=== PATIENT | male | born 1955 | race Caucasian/White ===

== ENCOUNTER 2017-08-22 17:51 | Inpatient (IN) | payer OTHER, MEDICAID ==
[~2017-08-22] VITALS: Ht 177.8 cm; Wt 95.2 kg
[2017-08-22] MEDS ORDERED: MIDAZOLAM HCL 1MG/1ML-2 ML VIAL IM ONE (18:45)
[2017-08-22] MEDS ORDERED: diphenhdrAMINE HCL 50 MG/1 ML VL IM ONE (18:45)
[2017-08-22 19:24] LABS: Basophils # (auto) 0.1 uL; Basophils % (auto) 0.5 % (0.0-2.0); Eosinophils # (auto) 0.1 uL; Eosinophils % (auto) 0.5 % (0.0-7.0); Hematocrit 35.3 % (41.0-53.0); Hemoglobin 11.8 g/dL (13.5-17.5); Lymphocytes # (auto) 2.3 uL; Lymphocytes % (auto) 14.8 % (10.0-50.0); Mean Corpuscular Hemoglobin 29.6 pg (28.0-32.0); Mean Corpuscular Hgb Conc. 33.4 g/dL (32.0-36.0); Mean Corpuscular Volume 88.9 fL (80.0-100.0); Monocytes # (auto) 1.2 uL; Monocytes % (auto) 7.7 % (0.0-12.0); Neutrophils # (auto) 11.9 uL; Neutrophils % (auto) 76.5 % (37.0-80.0); Platelet Count (auto) 382 10^3/uL (140-450); Red Blood Cells 3.98 10^6/uL (4.5-5.90); Red Cell Distribution Width 14.8 % (11.8-14.3); White Blood Cell 15.5 10^3/uL (4.4-10.8)
[2017-08-22] MEDS ORDERED: chlorproMAZINE HCL 25 MG TAB PO PRN (22:30)
[2017-08-22] MEDS ORDERED: OLANZapine 5 MG TAB PO ONE (22:30)
[2017-08-22] MEDS ORDERED: HYDROcodone-ACET 5/325MG TAB PO PRN (22:30)
[2017-08-22] MEDS ORDERED: OLANZapine 5 MG TAB ONE (22:48)
[2017-08-22] MEDS ORDERED: MORPHINE SULFATE INJECTION 1 ML ONE (23:40)
[2017-08-22] MEDS ORDERED: MORPHINE SULFATE 8mg/ml INJ SDV IM ONE (23:45)
[2017-08-23] VITALS (7 sets, daily range): BP systolic 102–126; BP diastolic 60–81
[2017-08-23] MEDS ORDERED: diphenhdrAMINE HCL 50 MG/1 ML VL IM ONE (00:45)
[2017-08-23] MEDS ORDERED: OLAN10TA29 PO (01:23)
[2017-08-23] MEDS ORDERED: CHLO100T4 PO (01:23)
[2017-08-23] MEDS ORDERED: DIVA250T3 PO (01:23)
[2017-08-23] MEDS ORDERED: LEVO50TA7 PO (01:23)
[2017-08-23] MEDS ORDERED: SENN-62 PO (01:23)
[2017-08-23] MEDS ORDERED: diphenhdrAMINE HCL 50 MG/1 ML VL ONE (01:32)
[2017-08-23] MEDS: OLANZapine 5 MG TAB PO SCH (09:46)
[2017-08-23] MEDS: POLYETHYLENE GLYCOL 17 GM PWDR PO SCH (09:47)
[2017-08-23] MEDS ORDERED: diphenhdrAMINE HCL 50 MG/1 ML VL IM PRN (12:45)
[2017-08-24 04:00] VITALS: BP 110/59
[2017-08-24 09:00] VITALS: BP 119/72
[2017-08-24] MEDS: OLANZapine 5 MG TAB PO SCH (10:34)
[2017-08-24] MEDS: POLYETHYLENE GLYCOL 17 GM PWDR PO SCH (10:34)
[2017-08-24 13:00] VITALS: BP 122/70
[2017-08-24 17:00] VITALS: BP 104/63
[2017-08-24 20:37] VITALS: BP 128/86
[2017-08-25 04:33] VITALS: BP 121/80
[2017-08-25 09:00] VITALS: BP 121/81
[2017-08-25] MEDS: POLYETHYLENE GLYCOL 17 GM PWDR PO SCH (09:44)
[2017-08-25] MEDS: OLANZapine 5 MG TAB PO SCH (09:44)
[2017-08-25 12:52] VITALS: BP 137/88
[2017-08-25 17:00] VITALS: BP 125/87
[2017-08-25 21:52] VITALS: BP 126/91
== END 2017-08-25 23:20 | disposition hospice, inpatient (51) | DRG 885 ==
LOC: EDBD 17:51 → ER 17:51 → OVERFLOW 17:52 → WEST WING 23:56
PROVIDERS: ADMIT Nurse Practitioner Family; ATTEND Family Medicine
DX: F29 Unspecified psychosis not due to a substance or known physiological condition (principal); G10 Huntington's disease; F02.81 Dementia in other diseases classified elsewhere, unspecified severity, with behavioral disturbance; K21.9 Gastro-esophageal reflux disease without esophagitis; E03.9 Hypothyroidism, unspecified; I10 Essential (primary) hypertension; Z51.5 Encounter for palliative care; Z66 Do not resuscitate
CPT/HCPCS: 36415; 71045; 82962; 85025; 87040; J2250

== ENCOUNTER 2017-10-14 18:30 | Inpatient (IN) | payer OTHER, MEDICAID ==
[~2017-10-14] VITALS: Ht 182.9 cm; Wt 90.6 kg
[~2017-10-14 18:30] MED LIST: CHLO100T4 PO; DIVA250T3 PO; LEVO50TA7 PO; OLAN10TA29 PO; SENN-62 PO
[2017-10-14 19:45] LABS: Basophils # (auto) 0.1 uL; Basophils % (auto) 0.8 % (0.0-2.0); Eosinophils # (auto) 0.2 uL; Eosinophils % (auto) 2.5 % (0.0-7.0); Hematocrit 37.2 % (41.0-53.0); Hemoglobin 12.4 g/dL (13.5-17.5); Lymphocytes # (auto) 2.3 uL; Lymphocytes % (auto) 26.7 % (10.0-50.0); Mean Corpuscular Hemoglobin 29.5 pg (28.0-32.0); Mean Corpuscular Hgb Conc. 33.4 g/dL (32.0-36.0); Mean Corpuscular Volume 88.2 fL (80.0-100.0); Monocytes # (auto) 0.5 uL; Monocytes % (auto) 6.2 % (0.0-12.0); Neutrophils # (auto) 5.6 uL; Neutrophils % (auto) 63.8 % (37.0-80.0); Nucleated Red Blood Cells % 0.1 %; Platelet Count (auto) 324 10^3/uL (140-450); Red Blood Cells 4.21 10^6/uL (4.5-5.90); White Blood Cell 8.7 10^3/uL (4.4-10.8)
[2017-10-14 20:08] LABS: Prothrombin Time 10.7 sec (9.27-12.13)
[2017-10-14 20:12] LABS: Alanine Aminotransferase 64 U/L (16-61); Albumin 3.4 g/dL (3.4-5.0); Alkaline Phosphatase 118 U/L (45-117); Anion Gap 5 (5-15); Aspartate Aminotransferase 32 U/L (15-37); BUN/Creatinine Ratio 13.7; Bilirubin, Total 0.6 mg/dL (0.2-1.0); Blood Urea Nitrogen 13 mg/dL (7-18); Calcium 9.2 mg/dL (8.5-10.1); Carbon Dioxide 28 mmol/L (21-32); Chloride 106 mmol/L (98-107); GFR African American 103 mL/min; GFR Non-African American 85 mL/min; Glucose 91 mg/dL (74-106); Magnesium 2.7 mg/dL (1.6-2.6); Potassium 3.8 mmol/L (3.5-5.1); Sodium 139 mmol/L (136-145); Total Protein 7.1 g/dL (6.4-8.2)
[2017-10-14] MEDS ORDERED: SODIUM CHLORIDE 0.9% 1,000 ML IV ONE (21:30)
[2017-10-14 22:42] LABS: Alcohol, Urine < 3.0 mg/dL (0-5); Amphetamine Screen, Urine NEGATIVE (NEGATIVE); Barbiturate Scree,Urine NEGATIVE (NEGATIVE); Benzodiazephine Screen, Urine NEGATIVE (NEGATIVE); Cannabinoid Screen, Urine NEGATIVE (NEGATIVE); Cocaine Screen, Urine NEGATIVE (NEGATIVE); Opiate Scree,Urine NEGATIVE (NEGATIVE); Phencyclidine Screen, Urine NEGATIVE (NEGATIVE); Urine Amorphous Crystal FEW /hpf (None Seen); Urine Bacteria FEW /hpf (None Seen); Urine Blood Negative /uL (Negative); Urine Specific Gravity 1.011 (1.001-1.035); Urine Sperm PRESENT /hpf (None Seen); Urine WBC 1 /hpf (0 - 3)
[2017-10-14] MEDS ORDERED: PHENobarbital SODIUM INJ 600 MG in SODIUM CHL 0.9% 100 ML IV ONE (22:45)
[2017-10-14] MEDS ORDERED: PHENobarbital SODIUM 130 MG/ML VL ONE (22:46)
[2017-10-14] MEDS ORDERED: PHENobarbital SODIUM 65 MG/ML VL ONE ×2 (22:46→23:17)
[2017-10-15] MEDS ORDERED: chlorproMAZINE HCL 25 MG TAB PO PRN ×2 (00:45→17:30)
[2017-10-15] MEDS ORDERED: ONDANSETRON HCL 4 MG/2 ML VIAL IV PRN (00:45)
[2017-10-15] MEDS: LEVOTHYROXINE SODIUM 25 MCG TAB PO SCH (07:00)
[2017-10-15] MEDS: ENOXAPARIN SOD 40 MG/0.4 ML SYRINGE SC SCH (09:40)
[2017-10-15] MEDS: OLANZapine 5 MG TAB PO SCH ×3 (10:00→23:45)
[2017-10-15] MEDS ORDERED: POLYSOL5 EACHEYE (10:15)
[2017-10-15] MEDS ORDERED: CHLO100T4 PO (10:15)
[2017-10-15] MEDS ORDERED: CLON1TAB4 PO ×2 (10:15)
[2017-10-15] MEDS ORDERED: CITA-36 PO (10:15)
[2017-10-15] MEDS ORDERED: HYDR-4683 PO (10:15)
[2017-10-15] MEDS ORDERED: EZET10TA38 PO (10:15)
[2017-10-15] MEDS ORDERED: DIPH25CA66 PO (10:15)
[2017-10-15] MEDS: CITALOPRAM HYDROBR 20 MG TAB PO SCH (15:17)
[2017-10-15] MEDS ORDERED: OLANZapine 5 MG TAB PO SCH (22:00)
[2017-10-15] MEDS: chlorproMAZINE HCL 25 MG TAB PO SCH (22:00)
[2017-10-16] MEDS: LEVOTHYROXINE SODIUM 25 MCG TAB PO SCH (06:02)
[2017-10-16 06:10] VITALS: BP 131/86
[2017-10-16] MEDS: ENOXAPARIN SOD 40 MG/0.4 ML SYRINGE SC SCH (09:49)
[2017-10-16] MEDS: CITALOPRAM HYDROBR 20 MG TAB PO SCH (09:49)
[2017-10-16] MEDS: chlorproMAZINE HCL 25 MG TAB PO SCH ×2 (10:32→21:55)
[2017-10-16] MEDS: OLANZapine 5 MG TAB PO SCH (21:55)
[2017-10-16 22:00] VITALS: BP 110/70
[2017-10-17 05:00] VITALS: BP 137/84
[2017-10-17] MEDS: LEVOTHYROXINE SODIUM 25 MCG TAB PO SCH (07:00)
[2017-10-17 09:00] VITALS: BP 135/87
[2017-10-17] MEDS: CITALOPRAM HYDROBR 20 MG TAB PO SCH (10:33)
[2017-10-17] MEDS: chlorproMAZINE HCL 25 MG TAB PO SCH ×2 (10:34→21:54)
[2017-10-17] MEDS: ENOXAPARIN SOD 40 MG/0.4 ML SYRINGE SC SCH (10:34)
[2017-10-17 13:00] VITALS: BP 126/91
[2017-10-17 17:00] VITALS: BP 106/70
[2017-10-17 21:36] VITALS: BP 156/78
[2017-10-17] MEDS: OLANZapine 5 MG TAB PO SCH (21:54)
[2017-10-18 04:30] VITALS: BP 155/73
[2017-10-18] MEDS: LEVOTHYROXINE SODIUM 25 MCG TAB PO SCH (07:00)
[2017-10-18 09:17] VITALS: BP 99/68
[2017-10-18] MEDS: CITALOPRAM HYDROBR 20 MG TAB PO SCH (10:46)
[2017-10-18] MEDS: chlorproMAZINE HCL 25 MG TAB PO SCH ×2 (10:47→22:00)
[2017-10-18] MEDS: ENOXAPARIN SOD 40 MG/0.4 ML SYRINGE SC SCH (10:47)
[2017-10-18 13:06] VITALS: BP 121/81
[2017-10-18 17:00] VITALS: BP 110/77
[2017-10-18] MEDS: OLANZapine 5 MG TAB PO SCH (21:52)
[2017-10-18 22:00] VITALS: BP 107/72
[2017-10-19 06:00] VITALS: BP 115/76
[2017-10-19] MEDS: LEVOTHYROXINE SODIUM 25 MCG TAB PO SCH (06:30)
[2017-10-19 09:00] VITALS: BP 116/64
[2017-10-19] MEDS: CITALOPRAM HYDROBR 20 MG TAB PO SCH (10:00)
[2017-10-19] MEDS: chlorproMAZINE HCL 25 MG TAB PO SCH ×2 (10:00→23:37)
[2017-10-19] MEDS: ENOXAPARIN SOD 40 MG/0.4 ML SYRINGE SC SCH (11:00)
[2017-10-19 12:57] VITALS: BP 116/76
[2017-10-19 17:00] VITALS: BP 126/76
[2017-10-19 22:00] VITALS: BP 118/80
[2017-10-19] MEDS: OLANZapine 5 MG TAB PO SCH (23:24)
[2017-10-20] MEDS: LEVOTHYROXINE SODIUM 25 MCG TAB PO SCH (06:53)
[2017-10-20 09:00] VITALS: BP 110/72
[2017-10-20] MEDS: CITALOPRAM HYDROBR 20 MG TAB PO SCH (10:54)
[2017-10-20] MEDS: ENOXAPARIN SOD 40 MG/0.4 ML SYRINGE SC SCH (10:54)
[2017-10-20] MEDS: chlorproMAZINE HCL 25 MG TAB PO SCH ×2 (11:14→22:50)
[2017-10-20 13:00] VITALS: BP 138/83
[2017-10-20 17:00] VITALS: BP 132/83
[2017-10-20 22:00] VITALS: BP 137/87
[2017-10-20] MEDS: OLANZapine 5 MG TAB PO SCH (22:50)
[2017-10-21 05:00] VITALS: BP 111/81
[2017-10-21] MEDS: LEVOTHYROXINE SODIUM 25 MCG TAB PO SCH (06:36)
[2017-10-21 09:00] VITALS: BP 110/75
[2017-10-21] MEDS: CITALOPRAM HYDROBR 20 MG TAB PO SCH (10:36)
[2017-10-21] MEDS: chlorproMAZINE HCL 25 MG TAB PO SCH ×2 (10:37→22:26)
[2017-10-21] MEDS: ENOXAPARIN SOD 40 MG/0.4 ML SYRINGE SC SCH (10:39)
[2017-10-21 13:00] VITALS: BP 113/80
[2017-10-21 17:00] VITALS: BP 121/82
[2017-10-21 22:00] VITALS: BP 103/70
[2017-10-21] MEDS: OLANZapine 5 MG TAB PO SCH (22:27)
[2017-10-22 05:00] VITALS: BP 119/75
[2017-10-22] MEDS: LEVOTHYROXINE SODIUM 25 MCG TAB PO SCH (06:36)
[2017-10-22 09:00] VITALS: BP 118/73
[2017-10-22] MEDS: CITALOPRAM HYDROBR 20 MG TAB PO SCH (09:47)
[2017-10-22] MEDS: ENOXAPARIN SOD 40 MG/0.4 ML SYRINGE SC SCH (09:47)
[2017-10-22] MEDS: chlorproMAZINE HCL 25 MG TAB PO SCH ×2 (09:57→21:48)
[2017-10-22 13:00] VITALS: BP 106/62
[2017-10-22] MEDS ORDERED: ACETAMINOPHEN 325 MG TAB PO PRN (15:00)
[2017-10-22] MEDS ORDERED: ARTIFICIAL TEARS 15ml EACHEYE PRN (15:00)
[2017-10-22] MEDS ORDERED: cefTRIAXone 1GM/10ml IVPUSH 10 ML IV ONE (15:00)
[2017-10-22] MEDS: SODIUM CHLORIDE 0.9% 1,000 ML IV SCH (16:21)
[2017-10-22 17:00] VITALS: BP 125/82
[2017-10-22 17:48] LABS: Basophils # (auto) 0.1 uL; Basophils % (auto) 0.8 % (0.0-2.0); Eosinophils # (auto) 0.3 uL; Eosinophils % (auto) 3.1 % (0.0-7.0); Hematocrit 35.6 % (41.0-53.0); Hemoglobin 11.9 g/dL (13.5-17.5); Lymphocytes # (auto) 2.7 uL; Mean Corpuscular Hemoglobin 29.8 pg (28.0-32.0); Mean Corpuscular Hgb Conc. 33.3 g/dL (32.0-36.0); Mean Corpuscular Volume 89.4 fL (80.0-100.0); Monocytes # (auto) 0.8 uL; Monocytes % (auto) 7.5 % (0.0-12.0); Neutrophils # (auto) 6.6 uL; Neutrophils % (auto) 62.6 % (37.0-80.0); Platelet Count (auto) 314 10^3/uL (140-450); Red Blood Cells 3.98 10^6/uL (4.5-5.90); Red Cell Distribution Width 15.6 % (11.8-14.3); White Blood Cell 10.5 10^3/uL (4.4-10.8)
[2017-10-22] MEDS ORDERED: SALINE 0.65 % NASAL SPRAY 45ML BOTTLE EACHNOSTRI SCH (18:00)
[2017-10-22 18:41] LABS: Urine Amorphous Crystal FEW /hpf (None Seen); Urine Bacteria NONE SEEN /hpf (None Seen); Urine Blood Negative /uL (Negative); Urine Mucus FEW (None Seen); Urine Specific Gravity 1.004 (1.001-1.035); Urine WBC 15 /hpf (0 - 3)
[2017-10-22] MEDS: OLANZapine 5 MG TAB PO SCH (21:47)
[2017-10-22 22:00] VITALS: BP 144/100
[2017-10-23] MEDS: SODIUM CHLORIDE 0.9% 1,000 ML IV SCH ×3 (06:07→19:03)
[2017-10-23 06:22] VITALS: BP 129/84
[2017-10-23] MEDS: LEVOTHYROXINE SODIUM 25 MCG TAB PO SCH (06:35)
[2017-10-23 07:37] LABS: Calcium 9.3 mg/dL (8.5-10.1); Potassium 3.9 mmol/L (3.5-5.1)
[2017-10-23 08:35] VITALS: BP 113/73
[2017-10-23 08:42] VITALS: BP 104/65
[2017-10-23] MEDS: CITALOPRAM HYDROBR 20 MG TAB PO SCH (10:03)
[2017-10-23] MEDS: cefTRIAXone 1GM/10ml IVPUSH 10 ML IV SCH (10:03)
[2017-10-23] MEDS: chlorproMAZINE HCL 25 MG TAB PO SCH ×2 (10:03→21:41)
[2017-10-23] MEDS: ENOXAPARIN SOD 40 MG/0.4 ML SYRINGE SC SCH (10:03)
[2017-10-23 16:53] VITALS: BP 122/89
[2017-10-23] MEDS ORDERED: CIPROFLOXACIN 0.3%OPTH(EYE) SOL 5ML EACHEYE SCH (18:00)
[2017-10-23] MEDS: GENTAMICIN OPTH sol 0.3% 5ml EACHEYE SCH ×2 (18:58→21:40)
[2017-10-23] MEDS: OLANZapine 5 MG TAB PO SCH (21:40)
[2017-10-23 21:42] VITALS: BP 115/68
[2017-10-24] MEDS: GENTAMICIN OPTH sol 0.3% 5ml EACHEYE SCH ×6 (02:08→23:17)
[2017-10-24 05:10] VITALS: BP 98/68
[2017-10-24] MEDS: LEVOTHYROXINE SODIUM 25 MCG TAB PO SCH (06:22)
[2017-10-24 07:44] LABS: BUN/Creatinine Ratio 14.6
[2017-10-24 09:00] VITALS: BP 124/76
[2017-10-24] MEDS: CITALOPRAM HYDROBR 20 MG TAB PO SCH (10:19)
[2017-10-24] MEDS: SODIUM CHLORIDE 0.9% 1,000 ML IV SCH ×2 (10:19→23:18)
[2017-10-24] MEDS: cefTRIAXone 1GM/10ml IVPUSH 10 ML IV SCH (10:19)
[2017-10-24] MEDS: ENOXAPARIN SOD 40 MG/0.4 ML SYRINGE SC SCH (10:20)
[2017-10-24] MEDS: chlorproMAZINE HCL 25 MG TAB PO SCH ×2 (10:20→23:18)
[2017-10-24 13:00] VITALS: BP 150/102
[2017-10-24 18:21] VITALS: BP 116/80
[2017-10-24 21:40] VITALS: BP 128/88
[2017-10-24] MEDS: OLANZapine 5 MG TAB PO SCH (23:17)
[2017-10-25] MEDS: GENTAMICIN OPTH sol 0.3% 5ml EACHEYE SCH ×4 (02:30→13:30)
[2017-10-25 05:04] VITALS: BP 120/74
[2017-10-25] MEDS: chlorproMAZINE HCL 25 MG TAB PO SCH (07:50)
[2017-10-25] MEDS: CITALOPRAM HYDROBR 20 MG TAB PO SCH (07:51)
[2017-10-25] MEDS: ENOXAPARIN SOD 40 MG/0.4 ML SYRINGE SC SCH (07:51)
[2017-10-25] MEDS: LEVOTHYROXINE SODIUM 25 MCG TAB PO SCH (07:51)
[2017-10-25 08:54] VITALS: BP 113/69
[2017-10-25] MEDS: cefTRIAXone 1GM/10ml IVPUSH 10 ML IV SCH (10:16)
[2017-10-25] MEDS: SODIUM CHLORIDE 0.9% 1,000 ML IV SCH (11:27)
[2017-10-25 12:45] VITALS: BP 117/79
== END 2017-10-25 15:48 | disposition hospice, home (50) | DRG 689 ==
LOC: EDBD 18:30 → ER 18:30 → OVERFLOW 18:31 → CENTRAL 10-15 22:10 → WEST WING 10-16 04:00
PROVIDERS: ADMIT Nurse Practitioner; ATTEND Internal Medicine
DX: N39.0 Urinary tract infection, site not specified (principal); G93.41 Metabolic encephalopathy; G10 Huntington's disease; F06.30 Mood disorder due to known physiological condition, unspecified; F02.80 Dementia in other diseases classified elsewhere, unspecified severity, without behavioral disturbance, psychotic disturbance, mood disturbance, and anxiety; D35.2 Benign neoplasm of pituitary gland; Z66 Do not resuscitate; E03.9 Hypothyroidism, unspecified; F17.200 Nicotine dependence, unspecified, uncomplicated; I10 Essential (primary) hypertension; K21.9 Gastro-esophageal reflux disease without esophagitis; R32 Unspecified urinary incontinence; S70.01XA Contusion of right hip, initial encounter; W18.39XA Other fall on same level, initial encounter; Y93.89 Activity, other specified; Y92.89 Other specified places as the place of occurrence of the external cause; Z79.899 Other long term (current) drug therapy; Z88.8 Allergy status to other drugs, medicaments and biological substances
CPT/HCPCS: 36415; 51702; 70450; 71045; 73501; 80048; 80053; 80164; 80307; 81001; 82962; 83735; 83880; 84439; 84443; 84484; 85025; 85379; 85610; 85730; 87086; 93005; J0696; Q0161